=== PATIENT | male | born 1990 | race American Indian/Alaskan Native ===

== ENCOUNTER 2016-12-11 19:04 | Emergency (ER) | payer MEDICAID | END 2016-12-11 20:34 | disposition left against medical advice (07) | LOC: ED 19:04 | DX: R45.851 Suicidal ideations (principal); Z53.21 Procedure and treatment not carried out due to patient leaving prior to being seen by health care provider ==

== ENCOUNTER 2017-02-05 20:47 | Emergency (ER) | payer MEDICAID ==
[2017-02-06 03:50] LABS: Eosinophils % (Auto) 1.7 % (0.0-4.3); Hematocrit 47.1 % (35.5-45.6); Hemoglobin 15.7 gm/dl (11.8-15.2); Mean Corpuscular HGB Conc 33 % (32-34); Mean Corpuscular Hemoglobin 31 pg (28-32); Mean Corpuscular Volume 94 fl (84-94); Platelet Count 311 K/mm3 (140-440); Red Blood Count 5.01 M/mm3 (3.65-5.03); Red Cell Distribution Width 13.4 % (13.2-15.2); White Blood Count 6.4 K/mm3 (4.5-11.0)
[2017-02-06 03:56] LABS: Urine Drugs of Abuse Note Disclamer
[2017-02-06 03:59] LABS: Anion Gap 17 mmol/L; Blood Urea Nitrogen 7 mg/dL (9-20); Calcium 8.8 mg/dL (8.4-10.2); Carbon Dioxide 25 mmol/L (22-30); Chloride 104.2 mmol/L (98-107); Glucose 97 mg/dL (75-100); Sodium 142 mmol/L (137-145)
[2017-02-06 04:05] LABS: Bilirubin,Urine NEG (Negative); Blood,Urine NEG (Negative); Ketones,Urine NEG (Negative); Leukocyte Esterase,Urine NEG (Negative); Mucus,Urine FEW /HPF; Nitrite,Urine NEG (Negative); Protein,Urine <15 mg/dL mg/dL (Negative); Urobilinogen,Urine < 2.0 mg/dL (<2.0); WBC,Urine < 1.0 /HPF (0.0-6.0)
--- NOTE | 2017-02-06 06:31 | Emergency Department Report ---
HPI - General Chief Complaint: Psych Time Seen by Provider: 02/06/17 06:28 - HPI HPI: This is a 26-year-old Afro-Bahraini male who presents to the emergency Department through triage with complaint of homicidal ideations. Patient says that there is no particular person or group of people that he is intent on harming but just has a generalized feeling of wanting to harm someone. He denies any suicidal ideations. He does admit to occasional auditory hallucinations. He has a history of schizophrenia, bipolar disorder and ADHD and says that he used to go to the [facility] and was on InVega but has not had it "in a minute." He denies any past medical history. He denies any current illicit drug use but does admit to drinking some alcohol last night. ED Past Medical Hx - Past Medical History Previous Medical History?: Yes Hx Psychiatric Treatment: Yes (SCHIZOPHRENIA/BIPOLAR/ADHD) - Surgical History Past Surgical History?: No - Social History Smoking Status: Current Every Day Smoker Substance Use Type: Alcohol, Marijuana - Medications Home Medications: Home Medications Medication Instructions Recorded Confirmed Last Taken Type No Known Home Medications [No 11/29/14 11/29/14 Unknown History Reported Home Medications] ED Review of Systems ROS: Stated complaint: MH EVAL Other details as noted in HPI Comment: All other systems reviewed and negative Constitutional: denies: chills, fever Eyes: denies: eye pain, eye discharge, vision change ENT: denies: ear pain, throat pain Respiratory: denies: cough, shortness of breath, wheezing Cardiovascular: denies: chest pain, palpitations Gastrointestinal: denies: abdominal pain, nausea, diarrhea Genitourinary: denies: urgency, dysuria Musculoskeletal: denies: back pain, joint swelling, arthralgia Skin: denies: rash, lesions Neurological: denies: headache, weakness, paresthesias Psychiatric: auditory hallucinations, homicidal thoughts. denies: visual hallucinations, suicidal thoughts Physical Exam - Physical Exam Vital Signs: Vital Signs 02/05/17 22:07 Temperature 98.5 F Pulse Rate 92 H Respiratory 20 Rate Blood Pressure 112/76 O2 Sat by Pulse 97 Oximetry Physical Exam: GENERAL: The patient is well-developed well-nourished. HEENT: Normocephalic. Atraumatic. Extraocular motions are intact. Patient has moist mucous membranes. NECK: Supple. Trachea is midline. CHEST/LUNGS: Clear to auscultation. There is no respiratory distress noted. HEART/CARDIOVASCULAR: Regular. There is no tachycardia. There is no gallop rub or murmur. ABDOMEN: Abdomen is soft, nontender. Patient has normal bowel sounds. There is no abdominal distention. SKIN: Skin is warm and dry. NEURO: The patient is awake, alert, and oriented. The patient is cooperative. The patient has no focal neurologic deficits. The patient has normal speech. MUSCULOSKELETAL: There is no tenderness or deformity. There is no limitation range of motion. There is no evidence of acute injury. ED Course Vital Signs 02/05/17 22:07 Temperature 98.5 F Pulse Rate 92 H Respiratory 20 Rate Blood Pressure 112/76 O2 Sat by Pulse 97 Oximetry ED Medical Decision Making - Lab Data Result diagrams: 02/06/17 03:22 02/06/17 03:22 - Medical Decision Making 26-year-old male presents with nonspecific homicidal ideations and admits to occasional auditory hallucinations. He presents with a blood alcohol level of 0.14 that was checked at about 3 AM and therefore at this current time he should be under the legal limit. His urine drug screen was positive only for marijuana. The rest of his labs are unremarkable. He is AAO 3 and cognizant but he has been made a 1013 secondary to his homicidal ideations. Vital signs stable throughout his ED course. He appears medically clear for psychiatric placement. - Differential Diagnosis bipolar disorder, schizophrenia, homicidal ideations Critical Care Time: No Critical care attestation.: If time is entered above; I have spent that time in minutes in the direct care of this critically ill patient, excluding procedure time. ED Disposition Clinical Impression: Homicidal ideations, History of bipolar disorder, History of schizophrenia Disposition: DC/TX-65 PSY HOSP/PSY UNIT Is pt being admited?: No Condition: Stable Referrals: PRIMARY MD GERMAINE [Primary Care Provider] - 3-5 Days Time of Disposition: 07:16
--- NOTE | 2017-02-06 13:31 | Consultation ---
History of Present Illness - Reason for Consult Consult date: 02/06/17 Reason for consult: Mental Health Evaluation Requesting physician: SOLEDAD FITZPATRICK - Chief Complaint Chief complaint: "What do you want" - History of Present Psychiatric Illness This is a 26-year-old Afro-Bahamian male who presents to the emergency Department through triage with complaint of homicidal ideations. Today patient is calm, but uncooperative during the assessment. He stated, "I answered all the questions earlier." He did state that he took the invega injection 2 months ago at the [facility], has a hx of bipolar, and he smoke marijuana everyday. He would not elaborate about wanting to harm someone of a group of people. He denies SI's, AVH's, and depression symptoms. He denies alcohol consumption, but his alcohol serum on admission was 0.14. Medications and Allergies Allergies Allergy/AdvReac Type Severity Reaction Status Date / Time No Known Allergies Allergy Verified 09/18/14 17:05 Home Medications Medication Instructions Recorded Confirmed Last Taken Type No Known Home Medications [No 11/29/14 11/29/14 Unknown History Reported Home Medications] Past psychiatric history - Past Medical History Past Medical History: No medical history Past Surgical History: No surgical history - past Psychiatric treatment and history Psych: Bipolar psychiatric treatment history: Stated that he see a psychiatrist at the [facility]. He denies a fam psy hx. - Social History Social history: other (Patient not willing to answer questions about his social hx) Mental Status Exam - Vital signs Last Vital Signs Temp 98.5 F 02/05/17 22:07 Pulse 92 H 02/05/17 22:07 Resp 20 02/06/17 12:24 BP 112/76 02/05/17 22:07 Pulse Ox 97 02/06/17 12:24 - Exam Narrative exam: ROS: (-) depression MSE: Appearance: calm, uncooperative Behavior: poor eye contact Speech: regular rate and tone Mood: "I am okay" Affect: labile Thought Process: circumstantial Thought Content: denies SI and AVH's Motor Activity: ambulatory Cognition: A/Ox 3 Insight: limited Judgment: limited Results Result Diagrams: 02/06/17 03:22 02/06/17 03:22 Abnormal lab results 02/06/17 02/06/17 02/06/17 Range/Units 03:22 03:22 03:22 Hgb 15.7 H (11.8-15.2) gm/dl Hct 47.1 H (35.5-45.6) % Lymph % (Auto) 40.6 H (13.4-35.0) % [place] % (Auto) 7.5 H (0.0-7.3) % BUN 7 L (9-20) mg/dL Plasma/Serum Alcohol 0.14 H (0-0.07) gm% All other labs normal. Assessment and Plan Assessment and plan: Impression: Historical Dx: Bipolar DO. Substance Induced Mood DO. Positive for marijuana and alcohol serum 0.14. Recommendation/Plan: Evaluate 1013 in 24 hours to determine proper dispo. Reassess in 24 hours to determine proper medication treatment.
--- NOTE | 2017-02-07 15:31 | Progress Note ---
Subjective - Reason for Consult Consult date: 02/07/17 Reason for consult: Psychiatry Follow-up - Chief Complaint Chief complaint: "Hello" This is a 26-year-old Afro-Nepalese male who presents to the emergency Department through triage with complaint of homicidal ideations. Today patient is calm and cooperative during assessment. He stated that he feel much better today and he was "intoxicated" when he made the statement about wanting to kill someone on admission. He stated having a lot going on when he made the gesture of HI's. He stated that he attend counseling sessions at the [facility]. He denies SI/HI's, AVH's and depression symptoms. Mental Status Exam - Vital signs Last Vital Signs Temp 98.5 F 02/06/17 22:00 Pulse 65 02/06/17 22:00 Resp 18 02/07/17 11:05 BP 120/70 02/06/17 22:00 Pulse Ox 99 02/06/17 22:00 - Exam Narrative exam: MSE: Appearance: calm, cooperative Behavior: regular eye contact Speech: regular rate and tone Mood: "better" Affect: labile Thought Process: circumstantial Thought Content: denies SI and AVH's Motor Activity: ambulatory Cognition: A/Ox 3 Insight: fair Judgment: fair Assessment and Plan Impression: Historical Dx: Bipolar DO. Substance Induced Mood DO. Today patient is calm and cooperative during assessment. Positive for marijuana and alcohol serum 0.14. Recommendation/Plan: Evaluate 1013 in 24 hours to determine proper dispo.
[2017-02-08] MEDS ORDERED: VISTARIL ONE (02:51)
[2017-02-08] MEDS ORDERED: VISTARIL PO ONE (02:51)
[2017-02-08] MEDS ORDERED: BENADRYL PO PRN (21:39)
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
[2017-02-09 13:58] VITALS: BP 128/73
== END 2017-02-09 13:58 ==
LOC: EEVIPCON 20:47 → ED 20:47
DX: R45.850 Homicidal ideations (principal); F31.9 Bipolar disorder, unspecified; F20.9 Schizophrenia, unspecified; F17.200 Nicotine dependence, unspecified, uncomplicated; F12.90 Cannabis use, unspecified, uncomplicated
CPT/HCPCS: 36415; 80048; 80307; 81001; 85025; 99285; G0480; 80320; Q0177

== ENCOUNTER 2017-03-04 04:29 | Emergency (ER) | payer MEDICAID ==
[2017-03-04 05:06] VITALS: BP 134/79
== END 2017-03-04 07:30 | disposition left against medical advice (07) ==
LOC: ED 04:29
DX: Z53.21 Procedure and treatment not carried out due to patient leaving prior to being seen by health care provider (principal)

== ENCOUNTER 2017-06-23 00:30 | Emergency (ER) | payer MEDICAID ==
[2017-06-23 01:23] LABS: Anion Gap 19 mmol/L; BUN/Creatinine Ratio 12; Blood Urea Nitrogen 13 mg/dL (9-20); Calcium 9.1 mg/dL (8.4-10.2); Carbon Dioxide 27 mmol/L (22-30); Chloride 105.9 mmol/L (98-107); Glucose 89 mg/dL (75-100); Potassium 4.5 mmol/L (3.6-5.0); Sodium 147 mmol/L (137-145)
[2017-06-23 01:32] LABS: Basophils % (Auto) 1.7 % (0.0-1.8); Eosinophils % (Auto) 2.1 % (0.0-4.3); Hematocrit 42.9 % (35.5-45.6); Hemoglobin 14.5 gm/dl (11.8-15.2); Mean Corpuscular HGB Conc 34 % (32-34); Mean Corpuscular Hemoglobin 33 pg (28-32); Mean Corpuscular Volume 98 fl (84-94); Platelet Count 300 K/mm3 (140-440); Red Blood Count 4.36 M/mm3 (3.65-5.03); White Blood Count 5.2 K/mm3 (4.5-11.0)
[2017-06-23] MEDS ORDERED: TRIPLE ANTIBIOTIC TP ONE ×2 (06:40)
--- NOTE | 2017-06-23 08:38 | Emergency Department Report ---
ED General Adult HPI - General Chief complaint: Psych Stated complaint: MENTAL HEALTH,RIGHT FINGER LACERATION Time Seen by Provider: 06/23/17 06:44 Source: patient Mode of arrival: Ambulatory Limitations: No Limitations - History of Present Illness Initial comments: Patient is a 26-year-old male past medical history of alcoholism, schizophrenia and bipolar and alcohol abuse who presents with a finger cut. Patient denies having any homicidal ideation. Patient states that he feels like he drank too much today denies having any pain. He states that he does sometimes feel like he does not want to live. Patient states that he cut on his thumb occurred yesterday he's not sure how it happened. He states the pain is a 2 out 10 pressing his thumb with pressure breast worse nothing makes it better. She denies any nausea or vomiting. Severity scale (0 -10): 0 - Related Data Home Medications Medication Instructions Recorded Confirmed Last Taken No Known Home Medications [No 11/29/14 06/23/17 Unknown Reported Home Medications] Allergies Allergy/AdvReac Type Severity Reaction Status Date / Time No Known Allergies Allergy Verified 09/18/14 17:05 ED Review of Systems ROS: Stated complaint: MENTAL HEALTH,RIGHT FINGER LACERATION Other details as noted in HPI Constitutional: denies: chills, fever Eyes: denies: eye pain, eye discharge, vision change ENT: denies: ear pain, throat pain Respiratory: denies: cough, shortness of breath, wheezing Cardiovascular: denies: chest pain, palpitations Endocrine: no symptoms reported Gastrointestinal: denies: abdominal pain, nausea, diarrhea Genitourinary: denies: urgency, dysuria Musculoskeletal: denies: back pain, joint swelling, arthralgia Skin: denies: rash, lesions Neurological: denies: headache, weakness, paresthesias Psychiatric: denies: anxiety, depression Hematological/Lymphatic: denies: easy bleeding, easy bruising ED Past Medical Hx - Past Medical History Hx Psychiatric Treatment: Yes (SCHIZOPHRENIA/BIPOLAR/ADHD) - Social History Smoking Status: Heavy Tobacco Smoker Substance Use Type: Alcohol - Medications Home Medications: Home Medications Medication Instructions Recorded Confirmed Last Taken Type No Known Home Medications [No 11/29/14 06/23/17 Unknown History Reported Home Medications] ED Physical Exam - General Limitations: No Limitations General appearance: alert, in no apparent distress - Head Head exam: Present: atraumatic, normocephalic - Eye Eye exam: Present: normal appearance - ENT ENT exam: Present: mucous membranes moist - Neck Neck exam: Present: normal inspection - Respiratory Respiratory exam: Present: normal lung sounds bilaterally. Absent: respiratory distress - Cardiovascular Cardiovascular Exam: Present: regular rate, normal rhythm. Absent: systolic murmur, diastolic murmur, rubs, gallop - GI/Abdominal GI/Abdominal exam: Present: soft, normal bowel sounds - Rectal Rectal exam: Present: deferred - Extremities Exam Extremities exam: Present: other (1.5 cm right finger abrasion) - Back Exam Back exam: Present: normal inspection - Neurological Exam Neurological exam: Present: alert, oriented X3 - Psychiatric Psychiatric exam: Present: normal affect, normal mood - Skin Skin exam: Present: warm, dry, intact, normal color. Absent: rash ED Course Vital Signs 06/23/17 06/23/17 00:38 06:07 Temperature 98.2 F 98.0 F Pulse Rate 57 L 95 H Respiratory 18 16 Rate Blood Pressure 133/87 Blood Pressure 122/74 [Left] O2 Sat by Pulse 97 96 Oximetry ED Medical Decision Making - Lab Data Result diagrams: 06/23/17 00:47 06/23/17 00:47 Lab Results 06/23/17 06/23/17 06/23/17 Range/Units 00:47 00:47 00:47 WBC 5.2 (4.5-11.0) K/mm3 RBC 4.36 (3.65-5.03) M/mm3 Hgb 14.5 (11.8-15.2) gm/dl Hct 42.9 (35.5-45.6) % MCV 98 H (84-94) fl MCH 33 H (28-32) pg MCHC 34 (32-34) % RDW 15.0 (13.2-15.2) % Plt Count 300 (140-440) K/mm3 Lymph % (Auto) 40.2 H (13.4-35.0) % [place] % (Auto) 10.1 H (0.0-7.3) % Eos % (Auto) 2.1 (0.0-4.3) % Baso % (Auto) 1.7 (0.0-1.8) % Lymph # 2.1 (1.2-5.4) K/mm3 Butts # 0.5 (0.0-0.8) K/mm3 Eos # 0.1 (0.0-0.4) K/mm3 Baso # 0.1 (0.0-0.1) K/mm3 Seg Neutrophils % 45.9 (40.0-70.0) % Seg Neutrophils # 2.4 (1.8-7.7) K/mm3 Sodium 147 H (137-145) mmol/L Potassium 4.5 (3.6-5.0) mmol/L Chloride 105.9 (98-107) mmol/L Carbon Dioxide 27 (22-30) mmol/L Anion Gap 19 mmol/L BUN 13 (9-20) mg/dL Creatinine 1.1 (0.8-1.5) mg/dL Estimated GFR > 60 ml/min BUN/Creatinine Ratio 12 % Glucose 89 (75-100) mg/dL Calcium 9.1 (8.4-10.2) mg/dL Plasma/Serum Alcohol 0.33 H (0-0.07) gm% 11//17 Range/Units 05:14 WBC (4.5-11.0) K/mm3 RBC (3.65-5.03) M/mm3 Hgb (11.8-15.2) gm/dl Hct (35.5-45.6) % MCV (84-94) fl MCH (28-32) pg MCHC (32-34) % RDW (13.2-15.2) % Plt Count (140-440) K/mm3 Lymph % (Auto) (13.4-35.0) % [place] % (Auto) (0.0-7.3) % Eos % (Auto) (0.0-4.3) % Baso % (Auto) (0.0-1.8) % Lymph # (1.2-5.4) K/mm3 Butts # (0.0-0.8) K/mm3 Eos # (0.0-0.4) K/mm3 Baso # (0.0-0.1) K/mm3 Seg Neutrophils % (40.0-70.0) % Seg Neutrophils # (1.8-7.7) K/mm3 Sodium (137-145) mmol/L Potassium (3.6-5.0) mmol/L Chloride (98-107) mmol/L Carbon Dioxide (22-30) mmol/L Anion Gap mmol/L BUN (9-20) mg/dL Creatinine (0.8-1.5) mg/dL Estimated GFR ml/min BUN/Creatinine Ratio % Glucose (75-100) mg/dL Calcium (8.4-10.2) mg/dL Plasma/Serum Alcohol 0.33 H (0-0.07) gm% - Medical Decision Making Chief medical diagnosis: Alcoholism Differential medical diagnosis: Schizophrenia, bipolar, finger abrasion All have patient be evaluated by mental health worker, BLOOD alcohol level, CBC and CMP, Patient's blood alcohol level is 330. I will get a repeat alcohol level for him and I'll have patient be evaluated by mental health worker. Discuss plan with patient and he agrees with plan. Patient has been cleared by mental health worker he is not suicidal patient is clinically sober his blood alcohol level is no mid 200s he can walk without any abnormality in his gait. And can converse with me and makes clear call directed decisions. Discuss final patient for discharge and patient agrees to plan. Additional verbal discharge instruction given. Critical care attestation.: If time is entered above; I have spent that time in minutes in the direct care of this critically ill patient, excluding procedure time. ED Disposition Clinical Impression: Alcoholism, Alcohol abuse Schizophrenia Qualifiers: Schizophrenia type: unspecified Qualified Code(s): F20.9 - Schizophrenia, unspecified Disposition: DC-01 TO HOME OR SELFCARE Is pt being admited?: No Does the pt Need Aspirin: No Condition: Stable Instructions: Abuse of Alcohol (ED), Alcohol Withdrawal (ED) Additional Instructions: . [facility] Address: [address] [place] [id number] Hours: Open today 8AM 5PM [facility] Address: [address] [facility] Hours: Open today 8AM5PM Referrals: [facility] [Outside] - 3-5 Days
[2017-06-23] MEDS ORDERED: ATIVAN PO PRN (09:39)
[2017-06-23 12:29] VITALS: BP 118/45
== END 2017-06-23 13:04 | disposition home or self-care (01) ==
LOC: EEVIPCON 00:30 → ED 00:30
DX: S61.011A Laceration without foreign body of right thumb without damage to nail, initial encounter (principal); F10.20 Alcohol dependence, uncomplicated; F20.9 Schizophrenia, unspecified; F17.200 Nicotine dependence, unspecified, uncomplicated; F31.9 Bipolar disorder, unspecified; F90.9 Attention-deficit hyperactivity disorder, unspecified type; Y28.8XXA Contact with other sharp object, undetermined intent, initial encounter; Y93.89 Activity, other specified; Y92.89 Other specified places as the place of occurrence of the external cause; Y99.8 Other external cause status
CPT/HCPCS: 36415; 80048; 85025; 99284; G0480; 80320; A6250

== ENCOUNTER 2017-10-08 20:22 | Emergency (ER) | payer MEDICAID ==
[2017-10-08] MEDS ORDERED: HALDOL IM ONE (20:42)
[2017-10-08] MEDS ORDERED: BENADRYL IV ONE (20:42)
[2017-10-08] MEDS ORDERED: HYDROGEN PEROXIDE ONE (20:52)
[2017-10-08 20:58] LABS: Basophils # (Auto) 0.1 K/mm3 (0.0-0.1); Basophils % (Auto) 1.1 % (0.0-1.8); Eosinophils # (Auto) 0.2 K/mm3 (0.0-0.4); Eosinophils % (Auto) 3.1 % (0.0-4.3); Hemoglobin 15.6 gm/dl (11.8-15.2); Lymphocytes # (Auto) 1.8 K/mm3 (1.2-5.4); Lymphocytes % (Auto) 29.6 % (13.4-35.0); Monocytes # (Auto) 0.5 K/mm3 (0.0-0.8); Monocytes % (Auto) 7.6 % (0.0-7.3)
[2017-10-08 21:08] LABS: Hematocrit 47.4 % (35.5-45.6); Mean Corpuscular HGB Conc 33 % (32-34); Mean Corpuscular Hemoglobin 32 pg (28-32); Mean Corpuscular Volume 97 fl (84-94); Platelet Count 328 K/mm3 (140-440)
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
[2017-10-08 21:21] LABS: BUN/Creatinine Ratio 10; Blood Urea Nitrogen 11 mg/dL (9-20); Calcium 9.1 mg/dL (8.4-10.2); Hemolysis Index 8
[2017-10-08] MEDS ORDERED: NACL 0.9% 1000 ML 1,000 ML IV ONE ×2 (21:59)
[2017-10-08] MEDS ORDERED: NACL 0.9% 1000 ML 1,000 ML ONE (21:59)
--- NOTE | 2017-10-08 22:20 | Cat Scan Report ---
FINAL REPORT PROCEDURE: CT HEAD/BRAIN WO CON TECHNIQUE: Computerized tomography of the head was performed without contrast material. HISTORY: head injury COMPARISON: No prior studies are available for comparison. FINDINGS: Skull and scalp: There is left periorbital soft tissue swelling.. There is no skull fracture. Paranasal sinuses: Normal. Ventricles and subarachnoid spaces: Normal. Cerebrum: No evidence of hemorrhage, acute infarction or mass . Cerebellum and brainstem: No evidence of hemorrhage, acute infarction or mass. Vasculature: Normal. Comments: None. IMPRESSION: There is left periorbital soft tissue swelling. There is no skull fracture. There is no intracranial hemorrhage.
[2017-10-09 02:32] LABS: Bilirubin,Urine NEG (Negative); Blood,Urine NEG (Negative); Color,Urine Straw (Yellow); Protein,Urine <15 mg/dL mg/dL (Negative); Urobilinogen,Urine < 2.0 mg/dL (<2.0)
[2017-10-09 02:39] LABS: Amphetamine Screen,Urine PRESUMPTIVE NEGATIVE; Benzodiazepines Screen,Urine PRESUMPTIVE NEGATIVE; Cannabinoid Screen,Urine PRESUMPTIVE NEGATIVE; Cocaine Screen,Urine PRESUMPTIVE NEGATIVE; Methadone Screen,Urine PRESUMPTIVE NEGATIVE; Opiate Screen,Urine PRESUMPTIVE NEGATIVE
[2017-10-09 11:23] VITALS: BP 107/62
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
== END 2017-10-09 16:51 ==
LOC: EEVIPCON 20:22 → ED 20:22
DX: F91.8 Other conduct disorders (principal); F10.129 Alcohol abuse with intoxication, unspecified; G89.11 Acute pain due to trauma; R45.850 Homicidal ideations; F20.9 Schizophrenia, unspecified; F17.200 Nicotine dependence, unspecified, uncomplicated; F31.9 Bipolar disorder, unspecified
CPT/HCPCS: 36415; 70450; 80048; 80307; 81001; 85025; 96361; 96372; 96374; 99284; G0480; J1200; J1630; J7030; 80320

== ENCOUNTER 2020-12-23 10:13 | Emergency (ER) | payer MEDICAID ==
--- NOTE | 2020-12-23 10:50 | Emergency Department Report ---
ED Psych HPI - General Chief Complaint: Psych Stated Complaint: TATI MARIEE Time Seen by Provider: 12/23/20 10:28 Source: patient Mode of arrival: Ambulatory - History of Present Illness Initial Comments: Chief complaint: I want to get some sleep. I want to get back on my benefits. I have been drinking every day for a week. HPI: This is a 30 yo male with hx of alcohol dependence and bipolar disorder who presents via EMS requesting medical assistance. When EMS arrived to [facility], police officers were present. Patient called 911 in order to be transported to the hospital. He states that he is homeless. He does not have a place to stay. He was recently released from prison a few days ago. He has auditory hallucinations. He explains, "I hear demons and spirits. It is like I am reading peoples minds." Patient states that he "drank a few beers" this morning. According to previous psychiatric consult, Patient had received monthly Invega injections at the [facility]. He denies fever, cough, shortness of breath, body aches. He denies loss of taste or smell. MD Complaint: other (Insomnia, auditory hallucinations) -: Gradual, days(s) (Several days) Associated Psychiatric Symptoms: racing thoughts, auditory hallucinations History of same: Yes Quality: constant Improves With: none Context: recent alcohol abuse, not taking psychiatric Associated Symptoms: denies other symptoms Treatments Prior to Arrival: none - Related Data Home Medications Medication Instructions Recorded Confirmed Last Taken No Known Home Medications [No 11/29/14 06/23/17 Unknown Reported Home Medications] Allergies Allergy/AdvReac Type Severity Reaction Status Date / Time No Known Allergies Allergy Verified 09/18/14 17:05 ED Review of Systems ROS: Stated complaint: TATI MARIEE Other details as noted in HPI Comment: All other systems reviewed and negative Constitutional: denies: fever, malaise Respiratory: denies: cough, shortness of breath Psychiatric: depression ED Past Medical Hx - Past Medical History Previous Medical History?: Yes Hx Psychiatric Treatment: Yes (SCHIZOPHRENIA/BIPOLAR/ADHD) - Surgical History Past Surgical History?: No - Social History Smoking Status: Current Every Day Smoker Substance Use Type: Alcohol - Medications Home Medications: Home Medications Medication Instructions Recorded Confirmed Last Taken Type No Known Home Medications [No 11/29/14 06/23/17 Unknown History Reported Home Medications] ED Physical Exam - General Limitations: No Limitations General appearance: alert, in no apparent distress - Head Head exam: Present: atraumatic, normocephalic - Eye Eye exam: Present: normal appearance - ENT ENT exam: Present: mucous membranes moist - Neck Neck exam: Present: normal inspection, full ROM (calm, cooperative, dirty, disheveled clothing) - Respiratory Respiratory exam: Present: normal lung sounds bilaterally. Absent: respiratory distress, wheezes, rales, rhonchi, stridor - Cardiovascular Cardiovascular Exam: Present: regular rate, normal rhythm, normal heart sounds. Absent: systolic murmur, diastolic murmur, rubs, gallop - GI/Abdominal GI/Abdominal exam: Present: soft, normal bowel sounds. Absent: distended, tenderness, guarding, rebound - Rectal Rectal exam: Present: deferred - Extremities Exam Extremities exam: Present: normal inspection - Neurological Exam Neurological exam: Present: alert, oriented X3 - Psychiatric Psychiatric exam: Present: normal mood, flat affect - Skin Skin exam: Present: warm, dry, intact, normal color. Absent: rash ED Medical Decision Making - Lab Data Result diagrams: 12/23/20 12:05 12/23/20 12:05 - Medical Decision Making Bipolar disorder, alcohol dependence: Reports insomnia and auditory hallucinations. He is calm and insightful. He is medically clear for psychiatric care. Awaiting treatment recommendations by mental health team. He does not appear to be a harm to himself or others. His main motivation is a liam ce for sleep. CBC chemistry serum toxicology within normal limits. 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 Patient denies suicidal homicidal ideation. He actually denied auditory hallucinations. He does not have acute psychosis. He informed mental health as sessor that patient was evicted from his mother's home. He desires case management assistance which is not available at this time. He has the intellectual capacity to obtain benefits and prescriptions of his own volition. I encouraged Mr. Talamantes to resume care at [facility]. Critical care attestation.: If time is entered above; I have spent that time in minutes in the direct care of this critically ill patient, excluding procedure time. ED Disposition Clinical Impression: Bipolar disorder, Alcohol dependence Disposition: DC-01 TO HOME OR SELFCARE Is pt being admited?: No Does the pt Need Aspirin: No Condition: Stable [facility]
[2020-12-23 12:56] LABS: Basophils % (Auto) 0.5 % (0.0-1.8); Eosinophils % (Auto) 0.7 % (0.0-4.3); Hematocrit 39.8 % (35.5-45.6); Hemoglobin 13.7 gm/dl (11.8-15.2); Lymphocytes % (Auto) 27.7 % (13.4-35.0); Mean Corpuscular HGB Conc 35 % (32-34); Mean Corpuscular Volume 94 fl (84-94); Monocytes # (Auto) 0.3 K/mm3 (0.0-0.8); Monocytes % (Auto) 7.8 % (0.0-7.3); Platelet Count 286 K/mm3 (140-440); Red Blood Count 4.23 M/mm3 (3.65-5.03); Red Cell Distribution Width 14.1 % (13.2-15.2)
[2020-12-23 13:10] LABS: BUN/Creatinine Ratio 9; Blood Urea Nitrogen 7 mg/dL (9-20); Calcium 9.2 mg/dL (8.4-10.2); Hemolysis Index 2
== END 2020-12-23 16:13 | disposition home or self-care (01) ==
LOC: ED 10:13
DX: F31.9 Bipolar disorder, unspecified (principal); F10.20 Alcohol dependence, uncomplicated; F20.9 Schizophrenia, unspecified; F17.200 Nicotine dependence, unspecified, uncomplicated
CPT/HCPCS: 36415; 80048; 80320; 85025; G0480

== ENCOUNTER 2020-12-23 23:50 | Emergency (ER) | payer MEDICAID | END 2020-12-24 04:32 | disposition left against medical advice (07) | LOC: ED 23:50 | DX: K46.9 Unspecified abdominal hernia without obstruction or gangrene (principal); Z53.21 Procedure and treatment not carried out due to patient leaving prior to being seen by health care provider ==

== ENCOUNTER 2021-04-23 11:57 | Emergency (ER) | payer MEDICAID | END 2021-04-23 12:25 | LOC: ED 11:57 | DX: Z13.30 Encounter for screening examination for mental health and behavioral disorders, unspecified (principal); Z53.21 Procedure and treatment not carried out due to patient leaving prior to being seen by health care provider ==